=== PATIENT | male | born 1980 | race Caucasian/White ===

== ENCOUNTER 2018-10-13 12:32 | Observation (INO) | payer BC, OTHER ==
[2018-10-13 13:39] LABS: Absolute Lymphocytes (CBC) 1.5 K/uL (0.7-4.9); Absolute Monocytes 0.4 K/uL (0.1-1.3); Absolute Neutrophil 2.8 K/uL (1.8-8.0); Basophils % 0.5 % (0-1.3); Eosinophils % 2.6 % (0-4.4); Hematocrit 46.8 % (39.6-49.0); Lymphocytes % 30.8 % (15.3-44.8); MPV 8.6 fL (7.6-11.3); Monocytes % 8.1 % (3.3-12.3); RBC Red Blood Cell Count 5.44 M/uL (4.33-5.43)
--- NOTE | 2018-10-13 13:48 | RAD REPORT ---
EXAM DESCRIPTION: Carolin Single View10/13/2018 1:40 pm CLINICAL HISTORY: Chest pain COMPARISON: none FINDINGS: The lungs appear clear of acute infiltrate. The heart is normal size IMPRESSION: No acute abnormalities displayed
--- NOTE | 2018-10-13 13:53 | EDPHYS ---
Physician Documentation [facility] Name: Marlon Corley Age: 38 yrs Sex: Male : 1980 Arrival Date: 10/13/2018 Time: 12:35 Bed 24 Private MD: None, None ED Physician Donte Hernandez HPI: 10/13 13:46 This 38 yrs old Male presents to ER via Ambulatory with complaints of Chest rodolfo Pain. 13:46 The patient or guardian reports chest pain that is located primarily in the substernal rodolfo area. The pain does not radiate. Associated signs and symptoms: Pertinent positives: shortness of breath. The chest pain is described as aching. Duration: The patient or guardian reports multiple episodes, with no pattern. Modifying factors: The symptoms are alleviated by nothing. the symptoms are aggravated by nothing. Severity of pain: At its worst the pain was mild moderate in the emergency department the pain has resolved. The patient has not experienced similar symptoms in the past. Historical: - Allergies: 12:49 No Known Allergies; aj1 - Home Meds: 12:49 None [Active]; aj1 - PMHx: 12:49 Bicuspid aortic valve; mitral valve prolapse; aj1 - Immunization history:: Flu vaccine is not up to date. - Social history:: Smoking status: Patient/guardian denies using tobacco. - Ebola Screening: : Patient denies travel to an Ebola-affected area in the 21 days before illness onset. - Family history:: not pertinent. ROS: 13:46 Constitutional: Negative for fever, chills, and weight loss, Eyes: Negative for injury, rodolfo pain, redness, and discharge, ENT: Negative for injury, pain, and discharge, Neck: Negative for injury, pain, and swelling, Abdomen/GI: Negative for abdominal pain, nausea, vomiting, diarrhea, and constipation, Back: Negative for injury and pain, : Negative for injury, bleeding, discharge, and swelling, MS/Extremity: Negative for injury and deformity, Skin: Negative for injury, rash, and discoloration, Neuro: Negative for headache, weakness, numbness, tingling, and seizure, Psych: Negative for depression, anxiety, suicide ideation, homicidal ideation, and hallucinations, Allergy/Immunology: Negative for hives, rash, and allergies, Endocrine: Negative for neck swelling, polydipsia, polyuria, polyphagia, and marked weight changes, Hematologic/Lymphatic: Negative for swollen nodes, abnormal bleeding, and unusual bruising. 13:46 Cardiovascular: Positive for chest pain. 13:46 Respiratory: Positive for shortness of breath, at rest. Exam: 13:46 Constitutional: This is a well developed, well nourished patient who is awake, alert, rodolfo and in no acute distress. Head/Face: Normocephalic, atraumatic. Eyes: Pupils equal round and reactive to light, extra-ocular motions intact. Lids and lashes normal. Conjunctiva and sclera are non-icteric and not injected. Cornea within normal limits. Periorbital areas with no swelling, redness, or edema. ENT: Nares patent. No nasal discharge, no septal abnormalities noted. Tympanic membranes are normal and external auditory canals are clear. Oropharynx with no redness, swelling, or masses, exudates, or evidence of obstruction, uvula midline. Mucous membranes moist. Neck: Trachea midline, no thyromegaly or masses palpated, and no cervical lymphadenopathy. Supple, full range of motion without nuchal rigidity, or vertebral point tenderness. No Meningismus. Chest/axilla: Normal chest wall appearance and motion. Nontender with no deformity. No lesions are appreciated. Cardiovascular: Regular rate and rhythm with a normal S1 and S2. No gallops, murmurs, or rubs. Normal PMI, no JVD. No pulse deficits. Respiratory: Lungs have equal breath sounds bilaterally, clear to auscultation and percussion. No rales, rhonchi or wheezes noted. No increased work of breathing, no retractions or nasal flaring. Abdomen/GI: Soft, non-tender, with normal bowel sounds. No distension or tympany. No guarding or rebound. No evidence of tenderness throughout. Back: No spinal tenderness. No costovertebral tenderness. Full range of motion. Skin: Warm, dry with normal turgor. Normal color with no rashes, no lesions, and no evidence of cellulitis. MS/ Extremity: Pulses equal, no cyanosis. Neurovascular intact. Full, normal range of motion. Neuro: Awake and alert, GCS 15, oriented to person, place, time, and situation. Cranial nerves II-XII grossly intact. Motor strength 5/5 in all extremities. Sensory grossly intact. Cerebellar exam normal. Normal gait. Psych: Awake, alert, with orientation to person, place and time. Behavior, mood, and affect are within normal limits. 13:46 Musculoskeletal/extremity: DVT Exam: No signs of deep vein thrombosis. no pain, no swelling, no tenderness, negative Homans' sign noted on exam, no appreciated bluish discoloration, no erythema, no increased warmth. Vital Signs: 12:49 BP 159 / 113; Pulse 86; Resp 18; Temp 98.3(TE); Pulse Ox 100% on R/A; Weight 72.57 kg [facility] (R); Height 6 ft. 3 in. (190.50 cm) (R); Pain 1/10; 13:53 BP 147 / 95; Pulse 71; Resp 16; Temp 98.2; Pulse Ox 100% ; lt1 16:22 BP 136 / 98; Pulse 55; Resp 20; Pulse Ox 100% on R/A; aj 12:49 Body Mass Index 20.00 (72.57 kg, 190.50 cm) [facility] MDM: 12:59 Patient medically screened. [facility] 13:48 Data reviewed: vital signs, nurses notes, lab test result(s), EKG, radiologic studies, [facility] CT scan, plain films. 10/13 13:14 Order name: Basic Metabolic Panel 10/13 13:14 Order name: CBC with Diff 10/13 13:14 Order name: LFT's 10/13 13:14 Order name: Magnesium 10/13 13:14 Order name: NT PRO-BNP; Complete Time: 14:28 10/13 13:14 Order name: PT-INR; Complete Time: 14:28 10/13 13:14 Order name: Troponin (emerg Dept Use Only); Complete Time: 14:28 10/13 13:14 Order name: XRAY Chest (1 view); Complete Time: 14:28 10/13 13:15 Order name: Basic Metabolic Panel; Complete Time: 14:28 [facility] 10/13 13:15 Order name: CBC with Automated Diff; Complete Time: 13:46 [facility] 10/13 13:15 Order name: Liver (Hepatic) Function; Complete Time: 14:28 [facility] 10/13 13:15 Order name: Magnesium; Complete Time: 14:28 [facility] 10/13 13:46 Order name: Lipase; Complete Time: 17:25 [facility] 10/13 13:51 Order name: CT Aorta for Dissection: DISSECTION, PE [facility] 10/13 13:14 Order name: EKG; Complete Time: 13:16 10/13 13:14 Order name: Cardiac monitoring; Complete Time: 13:15 10/13 13:14 Order name: EKG - Nurse/Tech; Complete Time: 13:15 10/13 13:14 Order name: IV Saline Lock; Complete Time: :29 10/13 13:14 Order name: Labs collected and sent; Complete Time: :29 10/13 13:14 Order name: O2 Per Protocol; Complete Time: :29 10/13 13:14 Order name: O2 Sat Monitoring; Complete Time: : 10/13 15:57 Order name: CT; Complete Time: 17:25 EDMS Administered Medications: 13:59 Drug: Lopressor (metoprolol TARTRATE) 50 mg Route: PO; aj 14:53 Follow up: Response: No adverse reaction aj 13:59 Drug: Aspirin Chewable Tablet 324 mg Route: PO; aj 14:53 Follow up: Response: No adverse reaction aj 13:59 Drug: Pepcid 20 mg Route: IVP; Site: right antecubital; aj 14:52 Follow up: Response: No adverse reaction aj 13:59 Drug: Lovenox 1 mg/kg Route: Sub-Q; Site: abdomen; aj 14:52 Follow up: Response: No adverse reaction aj Disposition: 10/13/18 13:52 Hospitalization ordered by Patito Freedman for Observation. Preliminary diagnosis are Chest pain, unspecified, Essential (primary) hypertension, Dyspnea. - Bed requested for Telemetry/MedSurg (observation). - Status is Observation. aj - Condition is Stable. - Problem is new. - Symptoms have improved. UTI on Admission? No Signatures: Dispatcher [employer] EDMS Yue Contreras Angela, RN RN Laura Jung RN Donte Morrison MD MD cha Corrections: (The following items were deleted from the chart) 17:00 13:52 Hospitalization Ordered by Patito Freedman MD for Observation. Preliminary diagnosis bd is Chest pain, unspecified; Essential (primary) hypertension; Dyspnea. Bed requested for Telemetry/MedSurg (observation). Status is Observation. Condition is Stable. Problem is new. Symptoms have improved. UTI on Admission? No. rodolfo 17:28 17:00 10/13/2018 13:52 Hospitalization Ordered by Patito Freedman MD for Observation. aj Preliminary diagnosis is Chest pain, unspecified; Essential (primary) hypertension; Dyspnea. Bed requested for Telemetry/MedSurg (observation). Status is Observation. Condition is Stable. Problem is new. Symptoms have improved. UTI on Admission? No. bd
--- NOTE | 2018-10-13 13:53 | ER ---
Nurse's Notes [facility] Name: Marlon Corley Age: 38 yrs Sex: Male : 1980 Arrival Date: 10/13/2018 Time: 12:35 Bed 24 Private MD: None, None Diagnosis: Chest pain, unspecified;Essential (primary) hypertension;Dyspnea Presentation: 10/13 12:47 Presenting complaint: Patient states: "I've got a little chest pain on my breast bone, aj1 my chest feels a little heavy, I couldn't sleep very well last night" Denies cough, congestion. Transition of care: patient was not received from another setting of care. Onset of symptoms was October 12, 2018. Risk Assessment: Do you want to hurt yourself or someone else? Patient reports no desire to harm self or others. Initial Sepsis Screen: Does the patient meet any 2 criteria? No. Patient's initial sepsis screen is negative. Does the patient have a suspected source of infection? No. Patient's initial sepsis screen is negative. Care prior to arrival: None. 12:47 Method Of Arrival: Ambulatory aj1 12:47 Acuity: AUGUSTIN 3 aj1 Triage Assessment: 12:49 General: Appears in no apparent distress. comfortable, Behavior is calm, cooperative, aj1 appropriate for age. Pain: Complains of pain in mid-sternal area Pain currently is 1 out of 10 on a pain scale. Neuro: Level of Consciousness is awake, alert, obeys commands, Oriented to person, place, time, situation. Cardiovascular: Patient's skin is warm and dry. Respiratory: Airway is patent Respiratory effort is even, unlabored, Respiratory pattern is regular, symmetrical. Historical: - Allergies: 12:49 No Known Allergies; aj1 - Home Meds: 12:49 None [Active]; aj1 - PMHx: 12:49 Bicuspid aortic valve; mitral valve prolapse; aj1 - Immunization history:: Flu vaccine is not up to date. - Social history:: Smoking status: Patient/guardian denies using tobacco. - Ebola Screening: : Patient denies travel to an Ebola-affected area in the 21 days before illness onset. - Family history:: not pertinent. Screenin:10 Abuse screen: Denies threats or abuse. Denies injuries from another. Nutritional aj screening: No deficits noted. Tuberculosis screening: No symptoms or risk factors identified. Fall Risk None identified. Assessment: 13:00 General: Appears in no apparent distress. comfortable, Behavior is calm, cooperative, aj appropriate for age. Pain: Complains of pain in mid-sternal area. Neuro: Level of Consciousness is awake, alert, obeys commands, Oriented to person, place, time, situation, Appropriate for age. Cardiovascular: Capillary refill < 3 seconds in bilateral fingers Patient's skin is warm and dry. Respiratory: Airway is patent Respiratory effort is even, unlabored, Respiratory pattern is regular, symmetrical. Derm: Skin is intact, is healthy with good turgor, Skin is pink, warm \\T\\ dry. normal. 16:23 Reassessment: Patient appears in no apparent distress at this time. No changes from aj previously documented assessment. Patient and/or family updated on plan of care and expected duration. Pain level reassessed. Patient is alert, oriented x 3, equal unlabored respirations, skin warm/dry/pink. Patient denies pain at this time. Patient states feeling better. Patient states symptoms have improved. Pain: Denies pain. 17:10 Reassessment: Patient appears in no apparent distress at this time. No changes from aj previously documented assessment. Patient and/or family updated on plan of care and expected duration. Pain level reassessed. Patient is alert, oriented x 3, equal unlabored respirations, skin warm/dry/pink. Ambulated with quick steady gait to restroom, denies dizziness Patient denies pain at this time. Patient states symptoms have improved. Vital Signs: 12:49 BP 159 / 113; Pulse 86; Resp 18; Temp 98.3(TE); Pulse Ox 100% on R/A; Weight 72.57 kg aj1 (R); Height 6 ft. 3 in. (190.50 cm) (R); Pain 1/10; 13:53 BP 147 / 95; Pulse 71; Resp 16; Temp 98.2; Pulse Ox 100% ; lt1 16:22 BP 136 / 98; Pulse 55; Resp 20; Pulse Ox 100% on R/A; aj 12:49 Body Mass Index 20.00 (72.57 kg, 190.50 cm) aj1 Vitals: 16:24 Cardiac Rhythm Assessment Sinus gregorio. aj ED Course: 12:35 Patient arrived in ED. mr 12:35 None, None is Private Physician. mr 12:48 Triage completed. aj1 12:49 Arm band placed on Patient placed in an exam room. aj1 12:57 Laura Astorga, RN is Primary Nurse. aj 12:59 Donte Hernandez MD is Attending Physician. rodolfo 13:28 Initial lab(s) drawn, by wa, sent to lab. Inserted saline lock: 20 gauge in right lt1 antecubital area, using aseptic technique. 13:35 X-ray completed. Portable x-ray completed in exam room. Patient tolerated procedure sw well. 13:38 XRAY Chest (1 view) In Process Unspecified. EDMS 13:51 Patito Freedman MD is Hospitalizing Provider. rodolfo 14:50 CT completed. Patient tolerated procedure well. Patient moved to CT. Patient moved back nj from CT. 17:10 Patient has correct armband on for positive identification. NIBP on. aj 17:10 No provider procedures requiring assistance completed. Patient did not have IV access aj during this emergency room visit. Patient maintains SpO2 saturation greater than 95% on room air. Administered Medications: 13:59 Drug: Lopressor (metoprolol TARTRATE) 50 mg Route: PO; aj 14:53 Follow up: Response: No adverse reaction aj 13:59 Drug: Aspirin Chewable Tablet 324 mg Route: PO; aj 14:53 Follow up: Response: No adverse reaction aj 13:59 Drug: Pepcid 20 mg Route: IVP; Site: right antecubital; aj 14:52 Follow up: Response: No adverse reaction aj 13:59 Drug: Lovenox 1 mg/kg Route: Sub-Q; Site: abdomen; aj 14:52 Follow up: Response: No adverse reaction aj Outcome: 13:52 Decision to Hospitalize by Provider. rodolfo 17:10 Admitted to Tele accompanied by tech, family with patient, via wheelchair, room 415, aj with chart, Report called to Yoni 17:10 Condition: good 17:10 Instructed on the need for admit. 17:28 Patient left the ED. aj Signatures: Dispatcher [employer] EDFaby Heredia, RN RN aj1 Laura Astorga, RN RN Donte Portillo MD MD cha Rivera, Ada mr Brice, Monisha Darryl, Lesly Moreland [facility]
[2018-10-13 14:00] LABS: ALT/SGPT 21 U/L (12-78); AST/SGOT 17 U/L (15-37); Albumin 4.5 g/dL (3.4-5.0); Alkaline Phosphatase 83 U/L (45-117); BUN Blood Urea Nitrogen 9 mg/dL (7-18); Bicarbonate 31 mmol/L (21-32); Bilirubin Direct 0.3 mg/dL (0-0.2); Bilirubin Total 1.2 mg/dL (0.2-1.0); Glucose Level 92 mg/dL (74-106); Magnesium 2.2 mg/dL (1.8-2.4); NT PRO-BNP 19 pg/mL (<125); Potassium 3.9 mmol/L (3.5-5.1); Protein, Total 7.9 g/dL (6.4-8.2); Sodium Level 143 mmol/L (136-145); Troponin (Emerg Dept Use Only) < 0.02 ng/mL (0.0-0.045)
[2018-10-13] MEDS ORDERED: METOPROLOL TAR 50 MG TAB ONE (14:06)
[2018-10-13] MEDS ORDERED: ASPIRIN 81 MG CHEWABLE TABLET ONE (14:06)
[2018-10-13] MEDS ORDERED: FAMOTIDINE 20 MG/2 ML VIAL IV ONE (14:07)
[2018-10-13] MEDS ORDERED: ENOXAPARIN 80 MG/0.8 ML SQ ONE (14:07)
--- NOTE | 2018-10-13 15:56 | RAD REPORT ---
EXAM DESCRIPTION: CT - Angio Aorta For Dissection - 10/13/2018 2:51 pm CLINICAL HISTORY: Substernal chest pain, chest heaviness, history of bicuspid aortic valve and mitr al valve replacement COMPARISON: Chest films same date TECHNIQUE: Dynamically enhanced 3 mm thick images of the chest, abdomen, and upper pelvis were obtai maryellen during administration of approximately 150mL Isovue 370 IV contrast. Sagittal and coronal reconst ruction images were generated using MIP and reviewed. Exam utilizes a protocol to evaluate entire cou rse of the aorta. All CT scans are performed using dose optimization technique as appropriate and may include automated exposure control or mA/KV adjustment according to patient size. FINDINGS: Aorta is normal in diameter with no dissection or other acute aortic findings. Aortic arch is bovine configuration with no great vessel origin stenosis. Vertebral artery origins are normal. I maya portions of each subclavian artery also unremarkable. Reconstruction images show no significant findings. Pulmonary arteries are normal as well. No cardiomegaly, pericardial thickening or pericardial effusio n. No mass or infiltrate in the lung parenchyma. No pleural thickening, pleural effusion or pneumothorax . No abnormal mediastinal or hilar mass or lymphadenopathy seen. No chest wall mass or abnormal axillar y lymphadenopathy. No pericardial thickening or effusion. Celiac, SMA and renal arteries show no suspicious findings. Solid abdominal viscera and bowel show no significant findings. There is a swirled appearance to the mesenteric vasculature in the left-side m id abdomen. This is nonspecific. No bowel wall edema or evidence for vascular compromise. No mass or abnormal lymphadenopathy. No free air, free fluid or inflammatory stranding. No urinary bladder abno rmality. Punctate air densities in the right-side periumbilical abdomen or soon to be medication inj ection sites. IMPRESSION: Negative CT scan of the aorta. No other significant findings on chest, abdomen and upper pelvis examination.Full findings detailed i n the body of the report.
[2018-10-13] MEDS ORDERED: HYDRALAZINE HCL 20 MG/ML VIAL IV PRN (17:38)
[2018-10-13] MEDS ORDERED: MORPHINE 2 MG/ML SYR IV PRN (17:38)
[2018-10-13] MEDS ORDERED: NITROGLYCERIN 0.4 MG/TAB SL PRN (17:38)
[2018-10-13] MEDS ORDERED: ACETAMINOPHEN 500 MG TAB PO PRN (17:38)
[2018-10-13] MEDS ORDERED: ENOXAPARIN 40 MG/0.4 ML SQ SCH (18:00)
[2018-10-13] MEDS: METOPROLOL TAR 25 MG TAB PO SCH (20:15)
[2018-10-13] MEDS ORDERED: METOPROLOL TAR 50 MG TAB PO SCH (21:00)
[2018-10-13] MEDS ORDERED: ATORVASTATIN 40 MG TAB PO SCH (21:00)
[2018-10-13 22:24] LABS: Urine Appearance CLEAR; Urine Bilirubin NEGATIVE (NEG); Urine Blood NEGATIVE (NEG); Urine Color YELLOW; Urine Glucose NEGATIVE (NEG); Urine Protein NEGATIVE (NEG); Urine Specific Gravity >=1.030 (1.005-1.030); Urine Urobilinogen 0.2 mg/dL (0.2-1.0)
[2018-10-13 22:27] LABS: Urine Microscopic Reflex NO UMIC
--- NOTE | 2018-10-14 03:26 | HP ---
Date of Admission: 10/13/2018 Chief Complaint: Chest pain. Primary Care Physician: None. Consultants: Dr. Garcia with Cardiology. History Of Present Illness: The patient is a 38-year-old male with past medical history of bicuspid aortic valve and mitral valve prolapse, who was in his usual state of health until night prior to adm ission. The patient had sharp substernal chest pain, which was nonradiating associated with shortnes s of breath. No nausea, vomiting, or diaphoresis. The patient's symptoms were constant, moderate, p rogressively worsening. No previous chest pain of this nature. Denies any alleviating factors. The patient came into the ER for further evaluation. In the ER, his workup was negative. Initial cardi ac enzymes were negative. EKG did not show any acute changes. His imaging studies including chest x -ray and CT scan of the aorta for aortic dissection were negative. The patient was then given Loveno x. His blood pressure was also elevated in the 140s to 160s/110 diastolic. The patient was given Lo pressor and then referred for admission. When the patient was seen in the ER, he was awake, alert, a nd oriented x3. Some mild distress. Past Medical History: Bicuspid aortic valve, mitral valve prolapse. Past Surgical History: None. Allergies: NO KNOWN DRUG ALLERGIES. Medications: None. Social History: The patient denies any tobacco use. Does drink alcohol occasionally. No illicit dr ug use. The patient is . 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 Has 2 sons. Family History: Both of his sons have bicuspid aortic valve. The patient denies any premature coron marcela artery disease in the family. Review of Systems: Ten-point system reviewed, negative except as per HPI. Physical Examination: Vital Signs: Blood pressure 159/113, pulse 86, respirations 18, temperature 98.3, O2 100% on room ai r. General: Awake, alert, oriented x3, in some mild distress, ill-appearing male. HEENT: Normocephalic, atraumatic. PERRLA. EOMI. Moist mucous membranes. The oropharynx is clear. Normal dentition. Conjunctivae anicteric. Neck: Supple. No JVD. Trachea midline. CV: S1, S2. Regular rate and rhythm. Peripheral pulses present. Respiratory: Moving air well bilaterally. No wheezing or stridor. No use of accessory muscles. Gastrointestinal: Abdomen is soft, nontender, nondistended. Positive bowel sounds. No guarding or rigidity. Extremities: No clubbing, cyanosis, or edema. No calf tenderness. Neuro: Cranial nerves 2 through 12 intact grossly. No focal neurological deficit. Speech is normal . Skin: No rashes. Normal skin turgor. Psych: Mood is okay. Affect is flat. Insight and judgment are good. Laboratory Data: Sodium 143, potassium 3.9, chloride 108, CO2 of 31, BUN 9, creatinine 0.9, glucose 92, calcium 8.9, magnesium 2.2. Troponin less than 0.02. Lipase 88. WBC 4.9, H and H 16 and 46.8, platelets 202. INR is 1. Imaging Studies: Chest x-ray shows no acute cardiopulmonary process. CT angio for aortic dissection shows negative CT scan of the aorta. No significant findings on the chest, abdomen, upper pelvis ex amination. Assessment: A 38-year-old male with; 1.Chest pain. We will start on chest pain guidelines and beta-lyn, statin, aspirin, and TERRY inh ibitor. We will obtain echocardiogram. Case discussed with Dr. Garcia, recommends cardiac stress t est which will be ordered for tomorrow. We will use morphine and nitroglycerin p.r.n. for his chest pain. Repeat EKG and cardiac enzymes to rule out acute coronary syndrome. 2.Uncontrolled elevated blood pressure without diagnosis of hypertension. We will add IV hydralazin e. The patient will also be receiving beta-lyn and TERRY inhibitor may be a causative factor for h is chest pain. 3.Bicuspid aortic valve. We will obtain echocardiogram. 4.Mitral valve prolapse. We will follow up with an echocardiogram report. 5.Deep vein thrombosis prophylaxis with Lovenox. Plan: Admit the patient to Med-Surg, [facility] as observation. /CAMERON Voice ID: [id number]
[2018-10-14 04:21] LABS: Absolute Lymphocytes (CBC) 2.1 K/uL (0.7-4.9); Absolute Monocytes 0.5 K/uL (0.1-1.3); Absolute Neutrophil 2.1 K/uL (1.8-8.0); Basophils % 0.8 % (0-1.3); Eosinophils % 3.1 % (0-4.4); Hematocrit 44.7 % (39.6-49.0); Lymphocytes % 42.6 % (15.3-44.8); MPV 8.7 fL (7.6-11.3); Monocytes % 10.9 % (3.3-12.3); RBC Red Blood Cell Count 5.22 M/uL (4.33-5.43)
[2018-10-14 04:39] LABS: BUN Blood Urea Nitrogen 12 mg/dL (7-18); Bicarbonate 30 mmol/L (21-32); Glucose Level 89 mg/dL (74-106); HDL Cholesterol 35 mg/dL (40-60); LDL Cholesterol, Calculated 70 (<130); Potassium 3.7 mmol/L (3.5-5.1); Sodium Level 144 mmol/L (136-145)
--- NOTE | 2018-10-14 07:53 | EKG ---
Test Date: 2018-10-13 Test Time: 12:41:24 Eyeletter: MOUNIKA MEASUREMENT RESULTS: Intervals: Rate: 69 NJ: 144 QRSD: 112 QT: 390 QTc: 417 Gentry: P: 74 NJ: 144 QRS: 85 T: 64 INTERPRETIVE STATEMENTS: Normal sinus rhythm with sinus arrhythmia Normal ECG No previous ECG available for comparison Electronically Signed On 10-14-18 07:52:17 CDT by Say Jacobs
[2018-10-14] MEDS ORDERED: LISINOPRIL 10 MG TAB PO SCH (09:00)
[2018-10-14] MEDS ORDERED: ENOXAPARIN 40 MG/0.4 ML SQ SCH (09:00)
[2018-10-14] MEDS ORDERED: ASPIRIN EC 81 MG TAB PO SCH (09:00)
[2018-10-14] MEDS ORDERED: REGADENOSON 0.4 MG/5 ML SYR IV ONE (09:12)
--- NOTE | 2018-10-14 12:02 | RAD REPORT ---
EXAM DESCRIPTION: NM - Rest Stress Cardiac Imaging - 10/14/2018 11:51 am CLINICAL HISTORY: CHEST PAIN Chest pain. COMPARISON: No comparisons TECHNIQUE: The patient was administered approximately 10mCi of Tc 99m Sestamibi prior to resting SPE CT imaging of the heart. The patient was then administered approximately 30 mCi of Tc 99m Sestamibi f ollowing exercise or pharmacologic stress. Multiplanar SPECT images were reviewed. FINDINGS: No stress induced ischemic defect is seen to suggest stress induced ischemia. No fixed def ect is seen to suggest hibernating myocardium or scarred myocardium. The end diastolic volume is 147 ml, the end systolic volume is 75 ml, and the ejection fraction is 49 %. IMPRESSION: No stress induced ischemia.
--- NOTE | 2018-10-14 12:05 | TREADPHA ---
DX: CHEST PAIN Date of Study: 10/14/2018 Ht: 6 3 Wt: 160 lb 0 oz Consulting Physician: JR MEDICATIONS: TYLENOL, ASPIRIN, LIPITOR, LOVENOX, PRINIVIL, LOPRESOR HISTORY: 38 JAMES OLD MALE WITH COMPLAINTS OF CHEST PAIN. MEDCAL HISTORY OF BICUSPID AORTIC VALVE AND MITRAL VALVE PROLAPSE. PHYSICIAL EXAMINATION: RESTING B.P.: 137/97 RESTING H.R.: 54 RESTING EKG: SINUS BRADYCARDIA, OTHERWISE NORMAL PROTOCOL: LEXISCAN EXERCISE TIME: 3:30 B.P. AT PEAK STRESS: 128/84 IMPRESSION: LEXISCAN INJECTED. CARDIOLITE INJECTED PER PROTOCOL. SEE NUCLEAR MEDICINE REPORT. NO SUPRAVENTRICULAR TACHYCARDIA. NO VENTRICULAR TACHYCARDIA. NO PREMATURE VENTRICULAR COMPLEXES. DENIED CHEST PAIN. NON DIAGNOSTIC EKG WITH LEXISCAN STRESS.
--- NOTE | 2018-10-14 12:11 | ECHO ---
HEIGHT: 6 ft 3 in WEIGHT: 160 lb 0 oz DATE OF STUDY: 10/14/[address]: Patito Freedman MD 2-DIMENSIONAL: YES M.MODE: YES DOPPLER: YES COLOR FLOW: YES TDS: NO PORTABLE: NO DEFINITY: NO BUBBLE STUDY: NO DIAGNOSIS: CHEST PAIN, BICUSPID AORTIC VALVE CARDIAC HISTORY: CATHERIZATION: NO SURGERY: NO PROSTHETIC VALVE: NO PACEMAKER: NO MEASUREMENTS (cm) DIASTOLIC (NORMALS) SYSTOLIC (NORMALS) IVSd 0.8 (0.6-1.2) LA Diam 2.3 (1.9-4.0) LVEF 66% LVIDd 4.8 (3.5-5.7) LVIDs 3.1 (2.0-3.5) %FS 36% LVPWd 1.0 (0.6-1.2) Ao Diam 3.2 (2.0-3.7) 2 DIMENSIONAL ASSESSMENT: RIGHT ATRIUM: NORMAL LEFT ATRIUM: NORMAL RIGHT VENTRICLE: NORMAL LEFT VENTRICLE: NORMAL TRICUSPID VALVE: NORMAL MITRAL VALVE: NORMAL PULMONIC VALVE: NORMAL AORTIC VALVE: TRICUSPID, NORMAL PERICARDIAL EFFUSION: NONE AORTIC ROOT: NORMAL LEFT VENTRICULAR WALL MOTION: NORMAL DOPPLER/COLOR FLOW: NORMAL COMMENTS: NORMAL 2D ECHOCARDIOGRAM WITH DOPPLER. IN SPITE OF THE HISTORY OF BICUSPID AORTIC VALVE, THE AORTIC VALVE HAS THREE LEAFLETS AND GROSSLY NORMAL. TECHNOLOGIST: Joelle BRUNER
[2018-10-14] MEDS: METOPROLOL TAR 25 MG TAB PO SCH (12:38)
--- NOTE | 2018-10-14 12:53 | CON ---
Chief Complaint: Chest pain. History Of Present Illness: The patient had chest pain yesterday. Today it has resolved since he has been in the hospital. EKGs and enzymes are normal. He is scheduled for a nuclear stress test and echocardiogram. No previous history of myocardial infarctions. Uses no tobacco. Rare alcohol. No illegal drugs. Takes no medications. No history of any vascular disease, blood clots, diabetes, hypertension, thyroid disease, dyslipidemia. Physical Examination: Vital Signs: 6 feet 3 inches, 160 pounds. HEENT: Normal. Lungs: Clear. Cardiac: Normal. Abdomen: Soft. Extremities: Normal. Normal pulses. EKG normal. Impression: This is very unlikely to be coronary heart disease. If he passes his tests, he could be discharged and follow up. He should get risk-factor control with primary care physician and do yearly tests. His LDL cholesterol is 70. It is without any treatment. His total cholesterol is 123. He is a very low risk patient for having coronary heart disease. DANISHA Voice ID: [id number] Report ID: [id number] JORGE
--- NOTE | 2018-10-14 20:35 | DS ---
Date of Discharge: 10/14/2018 Global Position System Technician: Dr. Jacobs with Cardiology. Procedures: Cardiac stress test on 10/14/2018, no stress-induced ischemia. Discharge Diagnoses: 1.Chest pain ACS ruled out. 2.History of bicuspid aortic valve. Echocardiogram shows 3 leaflets. 3.Mitral valve prolapse. 4.Uncontrolled blood pressure without diagnosis of hypertension. Hospital Course: The patient is a 38-year-old male with past medical history of bicuspid aortic valv e and mitral valve prolapse, comes in due to chest pain. The patient had uncontrolled blood pressure systolic in the 160/110 and the patient was admitted to the hospital for chest pain. Cardiac enzyme s were obtained. ACS was ruled out. His lipid panel was normal. The patient was seen by Dr. Jacobs with Cardiology. Cardiac stress test was done, which did not show any stress-induced ischemia. Ech ocardiogram was also done, which showed an EF of 66% and despite his history of bicuspid aortic valve , 3 leaflets were seen. The patient's pain resolved. His blood pressure improved with treatment. T he patient was then cleared for discharge. His imaging studies including chest x-ray and CT dissecti on were also negative for any acute abnormalities. The patient was then cleared for discharge and wa s sent home in a stable condition. Activity: As tolerated. Medications: As per medication reconciliation list. The patient will be started on lisinopril for h is blood pressure. He will need to monitor his blood pressure at different times of the day. Keep b lood pressure log. Obtain a blood pressure cuff and blood pressure monitor. We will need to hold hi s blood pressure medications for systolic less than 120. Diet: Heart healthy. Activity: As tolerated. Physical Examination: General: Awake, alert, oriented, in no acute distress. CV: S1 and S2, no murmurs. Respiratory: Moving air well bilaterally, no wheezing. Gastrointestinal: Abdomen is soft, nontender, nondistended. Positive bowel sounds. Extremities: No clubbing, cyanosis, or edema. Neurologic: Nonfocal. SA/MODL Voice ID: [id number] Report ID: [id number]
== END 2018-10-14 14:50 | disposition home or self-care (01) ==
LOC: ER 12:32 → ERHOLD 14:21 → 4TH 17:14
PROVIDERS: ADMIT Family Medicine; ATTEND Family Medicine
DX: R07.9 Chest pain, unspecified (principal); I34.1 Nonrheumatic mitral (valve) prolapse; I10 Essential (primary) hypertension; Q23.1 Congenital insufficiency of aortic valve; R06.00 Dyspnea, unspecified; Z79.899 Other long term (current) drug therapy
CPT/HCPCS: 36415; 71045; 71275; 74175; 78452; 80048; 80061; 80076; 81003; 83690; 83735; 83880; 84484; 85025; 85610; 93005; 93017; 93306; 94760; 96372; 96374; 99285; A9500; G0378; J1650; J2785; Q9967